=== PATIENT | female | born 1975 | race Hispanic/Latino ===

== ENCOUNTER 2021-10-16 19:10 | Emergency (ER) | payer OTHER, SELFPAY ==
[2021-10-16] VITALS (15 sets, daily range): BP systolic 101–131; BP diastolic 59–87; PULSE 78–90; RESP 16–22; TEMP 36.4–36.8; O2SAT 98–100
--- NOTE | ~2021-10-16 | XR_ITS ---
EXAMINATION: XR chest 2V EXAM DATE: 10/16/2021 19:51 INDICATION: Left-sided chest pain for 2 days. Left arm numbness. TECHNIQUE: Frontal and lateral projections of the chest obtained and reviewed. There is no prior dimas dy for comparison. FINDINGS: The lungs are clear. There are no pleural effusions. The cardiomediastinal silhouette is within normal limits. There is no pneumothorax suspected. There are cholecystectomy clips. There ar e no osseous abnormalities identified. IMPRESSION: Normal chest x-ray exam. Reviewed, dictated and finalized at location A. L CEILING BUILDER IMPRESSION: Normal chest x-ray exam.
--- NOTE | 2021-10-16 19:13 | ECG_ITS ---
Measurements Intervals [place] Rate: 86 P: 55 WA: 137 QRS: 11 QRSD: 97 T: 10 QT: 351 QTc: 422 Interpretive Statements SINUS RHYTHM BORDERLINE ST-T WAVE ABNORMALITY- ANT/INF LEADS BORDERLINE ECG Electronically Signed On 10-16-2021 20:01:54 CLIENT PROGRAM MANAGER by Master Morelos D.O.
[2021-10-16 19:33] LABS: Basophils Percent Auto 0.4 % (0.2-1.2); Eosinophils Absolute Auto 0.1 K/mm3 (0-0.3); Eosinophils Percent Auto 1.4 % (0-4.4); Hematocrit 41.3 % (37.0-47.0); Immature Granulocyte Absolute 0.01 K/mm3 (0.00-0.031); Immature Granulocyte Percent A 0.1 % (0-0.5); Lymphocytes Absolute Auto 2.67 K/mm3 (0.9-3.2); Lymphocytes Percent Auto 32.1 % (18.3-44.2); Mean Corpuscular HGB Conc 33.9 g/dl (32-36); Mean Corpuscular Volume 85.5 fl (80-100); Mean Platelet Volume 9.4 fl (7.4-10.4); Monocytes Absolute Auto 0.7 K/mm3 (0.1-0.6); Monocytes Percent Auto 8.9 % (2.6-8.5); Neutrophils Absolute Auto 4.7 K/mm3 (1.3-6.7); Neutrophils Percent Auto 57.1 % (45.5-73.1); Platelet Count Result 316 k/mm3 (150-375); Red Blood Count 4.83 M/mm3 (4.2-5.4); Red Cell Distribution Width 13.1 % (11.5-14.5); White Blood Count 8.3 K/mm3 (4.5-10.0)
[2021-10-16 19:42] LABS: Prothrombin Time 12.8 Seconds (11.1-14.7)
[2021-10-16 19:43] LABS: Alanine Aminotransferase 20 U/L (4-35); Albumin Level 4.4 g/dL (3.5-5.1); Alkaline Phosphatase 71 U/L (38-126); Anion Gap 7 mmol/L (8-16); Aspartate Amino Transferase 24 U/L (14-36); Bilirubin,Total 0.3 mg/dL (0.2-1.3); Blood Urea Nitrogen 13 mg/dL (7-17); Calcium 9.2 mg/dL (8.4-10.2); Carbon Dioxide 26 mmol/L (22-30); Chloride 102 mmol/L (98-107); Estimated Glomerular Filt Rate > 60; Glucose 100 mg/dL (65-110); Lipase 224 U/L (23-300); Partial Thromboplastin Time 27.9 SECONDS (22.3-36.8); Potassium 3.7 mmol/L (3.4-5.0); Sodium 135 mmol/L (137-145)
--- NOTE | 2021-10-16 19:46 | PC.NURSE ---
Pt off floor to radiology
[2021-10-16 19:54] LABS: Troponin I < 0.012 ng/mL (0.000-0.034)
--- NOTE | 2021-10-16 20:20 | PC.NURSE ---
Pt took aspirin SURFACE BOSS
--- NOTE | 2021-10-16 20:36 | ED.CHESTPAIN ---
HPI - Chest Pain General Chief Complaint: Chest Pain Stated Complaint: chest pain Time Seen by Provider: 10/16/21 20:13 Source: patient History of Present Illness HPI narrative: Patient presents with left-sided chest pain and neck pain. Patient reports she had symptoms yesterday they appear to get better they recurred again today she took some aspirin with some improvement however they do not completely resolve so she came to the ER for evaluation. Reports her pain is exacerbated with left upper extremity movement. The pain is sharp, constant, radiates from her neck to her chest. She denies any shortness of breath, nausea, vomiting, diarrhea, diaphoresis. Cough or congestion. She denies recent hospitalizations, surgeries prior history of blood clots. She reports she does travel a lot for work recent from [place] about a week and a half ago. Related Data Home Medications Medication Instructions Recorded Confirmed No Home Medications 10/16/21 10/16/21 Allergies Allergy/AdvReac Type Severity Reaction Status Date / Time Fish Containing Products Allergy Hives Verified 10/16/21 20:17 Review of Systems Review of Systems: CONSTITUTIONAL: Denies fever, chills, or sweats. EYES: Denies visual changes, redness, or discharge. ENT: Denies rhinorrhea, congestion, sore throat, or otalgia. CARDIOVASCULAR: Denies palpitations, or edema. RESPIRATORY: Denies cough or dyspnea. GASTROINTESTINAL: Denies abdominal pain, nausea, vomiting, or diarrhea. GENITOURINARY: Denies dysuria or hematuria. SKIN: Denies rash or itching. MUSCULOSKELETAL: Denies back pain, joint pain, or myalgia. NEUROLOGIC: Denies headache, numbness, dizziness, or weakness. PSYCHIATRIC: Denies anxiety or depression. All systems reviewed & are unremarkable except as noted in HPI and below PMFSH Past Medical History Medical History (Updated 10/17/21 @ 00:00 by Soy Osorio) Patient denies medical problems Social History Social History (Updated 10/16/21 @ 20:38 by Ceasar Del Castillo MD) Substance use: never Exam Narrative: GENERAL: Well-appearing, well-nourished, and in no acute distress. HEAD: Normocephalic, atraumatic. EYES: PERRLA and EOMI. ENT: Nares clear, no rhinorrhea or epistaxis. Mucous membranes moist. NECK: Supple. No masses. No JVD CHEST: Clear to auscultation. No respiratory distress. No wheezes rales or rhonchi HEART: Regular rate and rhythm. No murmur heard. Normal peripheral pulses. ABDOMEN: Soft, nontender, nondistended, normal active bowel sounds. EXTREMITIES: Normal range of motion. No edema. SKIN: Warm, dry, no rash. NEURO: No focal deficits. Alert and oriented x3. PSYCH: Normal mood and affect. Course Reevaluation(s) Reevaluation #1: Patient is resting comfortably results reviewed with patient. Patient is comfortable with outpatient plan. Date: 10/16/21 Time: 21:56 Vital Signs Vital signs: Vital Signs Temperature 36.4 C L 10/16/21 19:14 Pulse Rate 88 10/16/21 19:14 Respiratory Rate 18 10/16/21 19:14 Blood Pressure 131/68 10/16/21 19:14 Pulse Oximetry 100 10/16/21 19:14 Temperature 36.8 C 10/16/21 22:12 Pulse Rate 81 10/16/21 22:12 Respiratory Rate 19 10/16/21 22:12 Blood Pressure 104/60 10/16/21 22:12 Pulse Oximetry 100 10/16/21 22:12 MDM - Chest Pain MDM Narrative Medical decision making narrative: H&P as above, vss, pt looks clinically well, exam reassuring, labs clinically unremarkable with negative troponin with 24 hours worth of symptoms and negative dimer, img clinically unremarkable, additional labs/img considered, symptomatic relief available as needed, on reevaluation pt continues to looks clinically well. Symptoms remain of unclear etiology may represent chest wall pain or soft tissue injury due to the exacerbation with upper extremity movement, dns ACS, PE, dissection, pneumothorax. plan to tx/monitor as op w/ pcm f/u findings/plan discussed with pt, pt agree/comfortabl
[2021-10-16] MEDS: SODIUM CHLORIDE 0.9% IV 1,000 ML 999 ML IV CONT (21:08)
[2021-10-16 21:23] LABS: D Dimer 0.27 ug/mL (<0.48)
== END 2021-10-16 22:15 | disposition home or self-care (01) ==
PROVIDERS: Emergency Medicine; Emergency Provider Emergency Medicine
DX: R07.89 Other chest pain (principal); R94.31 Abnormal electrocardiogram [ECG] [EKG]
CPT/HCPCS: 36415; 71046; 80053; 83690; 84484; 85025; 85380; 85610; 85730; 93005; 96361; 96374; 99284; J0131; J7030

== ENCOUNTER 2022-01-05 09:42 | Emergency (ER) | payer OTHER, SELFPAY ==
--- NOTE | ~2022-01-05 | XR_ITS ---
EXAMINATION: XR hip LT 2V w AP pelvis EXAM DATE: 01/05/2022 10:59 INDICATION: Fall Left Hip And Left Knee Pain TECHNIQUE: Left hip frontal, 'frog leg' projections for interpretation. Frontal projection pelvis. There is no prior study for comparison. FINDINGS: Smooth left hip femoral head contour, no radiographic evidence of avascular necrosis. Ther e is mild symmetric bilateral hip primary osteoarthritis. There are no acute fractures or dislocation s identified. There is no subcutaneous gas. The soft tissue is unremarkable. There are no radiopa que foreign bodies. IMPRESSION: 1. XR hip LT 2V w AP pelvis exam without acute osseous findings. Reviewed, dictated and finalized at location B. TESTER
--- NOTE | ~2022-01-05 | XR_ITS ---
EXAMINATION: XR knee LT 3V EXAM DATE: 01/05/2022 10:59 INDICATION: Initial encounter following injury, with pain of the left knee. TECHNIQUE: Three projections of the left knee. There is no prior study for comparison. FINDINGS: No evidence osteochondral defect or joint body in the left knee joint. There are no acute fractures or dislocations identified. There is no subcutaneous gas. The soft tissue is unremarkabl e. There are no radiopaque foreign bodies. IMPRESSION: 1. XR knee LT 3V exam without acute osseous findings. Reviewed, dictated and finalized at location B. ERGARTEN CLASSROOM TEACHER
[2022-01-05 09:49] VITALS: BP 129/69; PULSE 89; RESP 18; TEMP 36.4; O2SAT 99
--- NOTE | 2022-01-05 10:53 | PC.NURSE ---
Leg elevated and ice pack provided for comfort.
--- NOTE | 2022-01-05 11:39 | ED.GENADULT ---
HPI - General Adult General Chief complaint: Extremity Injury, Lower Stated complaint: L hip/knee injury Time Seen by Provider: 01/05/22 10:18 Source: patient Mode of arrival: ambulatory Limitations: no limitations History of Present Illness HPI narrative: Patient is a 46-year-old female with chief complaint of pain to the left knee and hip after slipping on the ice at her job parking right and doing the splits onto her knees. Patient reports that she feels a popping sensation to the left knee. She reports pain to the medial lateral areas. She reports that she was able to get up and drive herself to the emergency department. Patient reports that she did have cartilage and soft tissue injury to the knee and surgery over 10 years ago. Patient denies any head impact or any other injuries from her fall. Related Data Allergies Allergy/AdvReac Type Severity Reaction Status Date / Time Fish Containing Products Allergy Hives Verified 01/05/22 10:17 Review of Systems Review of Systems: CONSTITUTIONAL: Denies fever, chills, or sweats. EYES: Denies visual changes, redness, or discharge. ENT: Denies rhinorrhea, congestion, sore throat, or otalgia. CARDIOVASCULAR: Denies chest pain, palpitations, or edema. RESPIRATORY: Denies cough or dyspnea. GASTROINTESTINAL: Denies abdominal pain, nausea, vomiting, or diarrhea. GENITOURINARY: Denies dysuria or hematuria. SKIN: Denies rash or itching. MUSCULOSKELETAL: Reports left knee and left hip pain denies back pain, joint pain, or myalgia. NEUROLOGIC: Denies headache, numbness, dizziness, or weakness. PSYCHIATRIC: Denies anxiety or depression. [facility] Past Medical History Medical History (Updated 01/05/22 @ 11:42 by Jaret Aparicio PA-C) Patient denies medical problems Social History Social History (Updated 10/16/21 @ 20:38 by Ceasar Del Castillo MD) Substance use: never Exam Narrative: GENERAL: Well-appearing, well-nourished, and in no acute distress. HEAD: Normocephalic, atraumatic. EYES: PERRLA and EOMI. CHEST: Clear to auscultation. No respiratory distress. No wheezes rales or rhonchi HEART: Regular rate and rhythm. EXTREMITIES: Pain to the medial and lateral area of the left knee. Pain with palpation to the inferior aspect of the knee. Pain to the lateral left hip. SKIN: Warm, dry, no rash. NEURO: No focal deficits. Alert and oriented x3. PSYCH: Normal mood and affect. Course Vital Signs Vital signs: Vital Signs Temperature 97.6 F 01/05/22 09:49 Pulse Rate 89 01/05/22 09:49 Respiratory Rate 18 01/05/22 09:49 Blood Pressure 129/69 01/05/22 09:49 Pulse Oximetry 99 01/05/22 09:49 Temperature 97.6 F 01/05/22 09:49 Pulse Rate 75 01/05/22 12:30 Respiratory Rate 14 01/05/22 12:30 Blood Pressure 135/77 01/05/22 12:30 Pulse Oximetry 100 01/05/22 12:30 Medical Decision Making MDM Narrative Medical decision making narrative: Concern for possible tendon/ligament injury. Patient placed in knee immobilizer and given crutches. Patient instructed to follow up with Occupational health or ortho as MRI may be needed. Patient has had gastric balloon so she can not have nsaids. Patient given RTER instructions. Differential Diagnosis Differential Diagnosis: Fracture, sprain, strain Vital Signs Vital Signs: Vital Signs Temperature 97.6 F 01/05/22 09:49 Pulse Rate 89 01/05/22 09:49 Respiratory Rate 18 01/05/22 09:49 Blood Pressure 129/69 01/05/22 09:49 Pulse Oximetry 99 01/05/22 09:49 Temperature 97.6 F 01/05/22 09:49 Pulse Rate 75 01/05/22 12:30 Respiratory Rate 14 01/05/22 12:30 Blood Pressure 135/77 01/05/22 12:30 Pulse Oximetry 100 01/05/22 12:30 Imaging Data Radiologist's impression: ITS Impressions Hip/Pelvis X-Ray 01/05/22 11:07 IMPRESSION: 1. XR hip LT 2V w AP pelvis exam without acute osseous findings. Knee X-Ray 01/05/22 11:08 IMPRESSION: 1. XR knee LT 3V exam without acute osseo
[2022-01-05 12:30] VITALS: BP 135/77; PULSE 75; RESP 14; O2SAT 100
--- NOTE | 2022-01-05 12:30 | PC.NURSE ---
Knee immobilizer applied to left knee. Patient provided crutches and education.
== END 2022-01-05 12:30 | disposition home or self-care (01) ==
PROVIDERS: Emergency Provider Emergency Medicine
DX: S83.92XA Sprain of unspecified site of left knee, initial encounter (principal); W00.0XXA Fall on same level due to ice and snow, initial encounter
CPT/HCPCS: 73502; 73562; 99284

== ENCOUNTER → 2022-01-20 08:58 | Outpatient (CLI) | payer OTHER, SELFPAY ==
--- NOTE | ~2022-01-20 | MR_ITS ---
EXAMINATION: MR knee LT wo con DATE: 01/20/2022 09:42 INDICATION: Medial collateral ligament tear presenting with medial left knee pain post fall 2 weeks p rior TECHNIQUE: Magnetic resonance imaging (MRI) of the left knee was performed without intravenous contra st. Sequences included coronal PD-weighted FSE, coronal PD-weighted FS FSE, sagittal T2-weighted FSE , sagittal PD-weighted FS FSE and axial PD weighted fat saturated FSE. COMPARISON: None. FINDINGS: Medial compartment: Medial meniscus is normal. Articular cartilage is normal. Lateral compartment: Lateral meniscus is normal. There is marrow edema surrounding a linear nondisplaced fracture line und erlying the lateral margin of the posterior weightbearing lateral femoral condyle. The articular cart ilage is normal. Patellofemoral compartment: Partial-thickness chondral fissuring without degenerative subchondral changes at the patellar apical ridge and medial side of the lateral facet. Trochlear cartilage is normal. Ligaments and tendons: Anterior and posterior cruciate ligaments are normal. Mild partial-thickness tear involving the anter ior aspect of the proximal medial collateral ligament with surrounding soft tissue edema. The extenso r mechanism is normal. The visualized medial and lateral hamstring tendons as well as the iliotibial band are normal. Fluid: Physiologic amount of fluid in the joint space. No loose osteochondral bodies identified. IMPRESSION: 1. Moderate grade sprain/partial thickness tear at the proximal medial collateral ligament. 2. Nondisplaced subarticular impaction fracture underlying the posterior weightbearing lateral femora l condyle. 3. Moderate grade patellar chondromalacia. Reviewed, dictated and finalized at location A. ANALYST REPORT WRITER IMPRESSION: 1. Moderate grade sprain/partial thickness tear at the proximal medial collater al ligament. 2. Nondisplaced subarticular impaction fracture underlying the posterior weight bearing lateral femoral condyle. 3. Moderate grade patellar chondromalacia.
== END ==
PROVIDERS: Visit Provider Orthopaedic Surgery
DX: S83.412A Sprain of medial collateral ligament of left knee, initial encounter (principal); S72.425A Nondisplaced fracture of lateral condyle of left femur, initial encounter for closed fracture; M22.42 Chondromalacia patellae, left knee
CPT/HCPCS: 73721

== ENCOUNTER → 2023-07-19 14:14 | Outpatient (CLI) | payer OTHER, SELFPAY ==
--- NOTE | ~2023-07-19 | MR_ITS ---
EXAMINATION: MR brain/brain stem wo/w con DATE: 07/19/2023 15:10 INDICATION: Hyperprolactinemia. TECHNIQUE: Magnetic resonance imaging (MRI) of the brain and brainstem was performed without and with 15 mL MultiHance intravenous contrast. COMPARISON: None. FINDINGS: The pituitary is normal in size with height of 5 mm. There is no intracranial hemorrhage, a cute infarction, or abnormal intracranial mass lesion. The ventricles are normal in size. The paranas al sinuses are clear. The mastoid air cells are normal. The orbits are normal. IMPRESSION: 1. Normal pituitary. Normal brain. Reviewed, dictated and finalized at location A.
== END ==
PROVIDERS: PCP Internal Medicine Endocrinology, Diabetes & Metabolism; Visit Provider Internal Medicine Endocrinology, Diabetes & Metabolism
DX: E22.1 Hyperprolactinemia (principal)
CPT/HCPCS: 70553; A9577

== ENCOUNTER 2023-12-12 13:56 | Emergency (ER) | payer OTHER, SELFPAY ==
--- NOTE | ~2023-12-12 | CT_ITS ---
EXAMINATION: CT abdomen pelvis w con DATE: 12/12/2023 17:31 INDICATION: Diarrhea. TECHNIQUE: Computed tomography (CT) of the abdomen and pelvis was performed with 100 mL Omnipaque 350 intravenous contrast. Automated exposure control and iterative reconstruction technique were employe d. The dose-length product was 335.50 mGy-cm. COMPARISON: None. FINDINGS: The visualized portions of the lung bases demonstrate mild atelectasis. No pleural effusion . The heart size is normal. No pericardial effusion. There are changes of gastric sleeve procedure. T here are changes of cholecystectomy. The liver, spleen, pancreas, adrenal glands, and kidneys are nor mal. There are multiple uterine fibroids measuring up to 2.9 cm. There is diverticulosis of the colon without evidence of diverticulitis. The appendix is normal. There are no pathologically enlarged lym ph nodes. There is no free intraperitoneal fluid. There is a 3.8 cm cyst in right ovary, likely a fol licular cyst. There is subcutaneous fat stranding in the body wall, which may be changes of abdominop lasty. There is mild lumbar spondylosis. IMPRESSION: 1. Uterine fibroids. Reviewed, dictated and finalized at location E. TEACHER IMPRESSION: 1. Uterine fibroids.
[2023-12-12 13:58] VITALS: BP 119/76; PULSE 91; RESP 16; TEMP 36.7; O2SAT 100
[2023-12-12 15:04] VITALS: BP 117/79; PULSE 66; RESP 15; O2SAT 100
--- NOTE | 2023-12-12 15:17 | ED.GENADULT ---
HPI - General Adult General Chief complaint: Nausea/Vomiting/Diarrhea <Monster Zarate PA-C - Last Filed: 12/12/23 15:22> Stated complaint: diarrhea <Monster Zarate PA-C - Last Filed: 12/12/23 15:22> Time Seen by Provider: 12/12/23 15:17 <Monster Zarate PA-C - Last Filed: 12/12/23 15:22> Focused HPI: This is a 48-year-old female who presents to the ED with chief complaint of diarrhea x4 days. Reports that every time she eats she started to have cramping pain and immediately as diarrhea. She reports bariatric surgery done in August of 2023 but has done well with this up until this week. Endorses nausea. denies fevers, chills, vomiting, urinary problem. GENERAL: Well-appearing, well-nourished, and in no acute distress. HEAD: Normocephalic, atraumatic. CHEST: Clear to auscultation. No respiratory distress. ABDOMINAL: Epigastric tenderness present. No rigidity HEART: Regular rate and rhythm. NEURO: Alert and oriented x3. Patient screened in triage and initial orders placed. Additional care and disposition to be based upon diagnostic testing and treatment. <Monster Zarate PA-C - Last Filed: 12/12/23 15:22> Focused HPI: This is a 48-year-old female who presents to the ED with chief complaint of diarrhea x4 days. Reports that every time she eats she started to have cramping pain and immediately as diarrhea. She reports bariatric surgery done in August of 2023 but has done well with this up until this week. Endorses nausea. Denies fevers, chills, vomiting, urinary problem. GENERAL: Well-appearing, well-nourished, and in no acute distress. HEAD: Normocephalic, atraumatic. CHEST: Clear to auscultation. No respiratory distress. ABDOMINAL: Epigastric tenderness present. No rigidity HEART: Regular rate and rhythm. NEURO: Alert and oriented x3. Patient screened in triage and initial orders placed. Additional care and disposition to be based upon diagnostic testing and treatment. <Rachelle Win MD - Last Filed: 12/12/23 18:35> Related Data Home medications: Home Medications Medication Instructions Recorded Confirmed fexofenadine 60 mg-pseudoephedrine 1 tablet PO Q12H PRN 07/28/22 ER 120 mg tablet,ext.release,12 hr (Kim-D 12 Hour) <Monster Zarate PA-C - Last Filed: 12/12/23 15:22> Allergies/adverse reactions: Allergies Allergy/AdvReac Type Severity Reaction Status Date / Time acetaminophen [From [place]] Allergy Severe Hallucinati Verified 12/12/23 14:59 ng hydrocodone [From [place]] Allergy Severe Hallucinati Verified 12/12/23 14:59 ng Fish Containing Products Allergy Hives Verified 12/12/23 14:59 <Monster Zarate PA-C - Last Filed: 12/12/23 15:22> Review of Systems Review of Systems: All systems are reviewed and are negative unless stated otherwise in the HPI. <Rachelle Win MD - Last Filed: 12/12/23 18:35> PMFSH Past Medical History Medical History: Medical History Acute medial meniscus tear of left knee Obesity Patient denies medical problems Tear of MCL (medial collateral ligament) of knee <Monster Zarate PA-C - Last Filed: 12/12/23 15:22> Surgical History Surgical History: Surgical History H/O left knee surgery History of cholecystectomy S/P rhinoplasty Status post colposcopy <Monster Zarate PA-C - Last Filed: 12/12/23 15:22> Family History Family History: Family History Other Cancer Depression Hypertension <Monster Zarate PA-C - Last Filed: 12/12/23 15:22> Social History Social History: Social History Social History: Single Smoking status: Never smoker Second hand tobacco smoke exposure: No Alcohol intake: never Substance use: never Substance use type: do
[2023-12-12 15:20] LABS: Basophils Percent Auto 0.4 % (0.2-1.2); Eosinophils Absolute Auto 0.1 K/mm3 (0-0.3); Eosinophils Percent Auto 0.8 % (0-4.4); Hematocrit 45.1 % (37.0-47.0); Hemoglobin 14.8 g/dL (12.0-15.0); Immature Granulocyte Absolute 0.02 K/mm3 (0.00-0.031); Immature Granulocyte Percent A 0.3 % (0-0.5); Lymphocytes Absolute Auto 1.93 K/mm3 (0.9-3.2); Lymphocytes Percent Auto 24.7 % (18.3-44.2); Mean Corpuscular HGB Conc 32.8 g/dl (32-36); Mean Corpuscular Hemoglobin 28.3 pg (26-34); Mean Corpuscular Volume 86.2 fl (80-100); Mean Platelet Volume 10.6 fl (7.4-10.4); Monocytes Absolute Auto 0.7 K/mm3 (0.1-0.6); Monocytes Percent Auto 8.3 % (2.6-8.5); Neutrophils Absolute Auto 5.1 K/mm3 (1.3-6.7); Neutrophils Percent Auto 65.5 % (45.5-73.1); Platelet Count Result 335 k/mm3 (150-375); Red Blood Count 5.23 M/mm3 (4.2-5.4); Red Cell Distribution Width 13.1 % (11.5-14.5); White Blood Count 7.8 K/mm3 (4.5-10.0)
[2023-12-12 15:22] LABS: Appearance Urine Clear (Clear); Bilirubin Urine Negative (Negative); Blood Urine Negative (Negative); Color Urine Yellow (Yellow); Glucose Urine UA Negative (Negative); Ketones Urine Negative (Negative); Leukocyte Esterase Ur Negative LEU/UL (Negative); Nitrate Urine Negative (Negative); Protein Urine Negative (Negative); Specific Grav Ur 1.025 (1.001-1.035)
[2023-12-12 15:24] LABS: Add Urine Microscopic? NO
[2023-12-12 15:30] LABS: Alanine Aminotransferase 20 U/L (6-35); Albumin Level 4.3 g/dL (3.5-5.1); Alkaline Phosphatase 70 U/L (38-126); Anion Gap 8 mmol/L (8-16); Aspartate Amino Transferase 24 U/L (14-36); Bilirubin,Total 0.8 mg/dL (0.2-1.3); Blood Urea Nitrogen 16 mg/dL (7-17); Calcium 9.3 mg/dL (8.4-10.2); Carbon Dioxide 25 mmol/L (22-30); Chloride 104 mmol/L (98-107); Estimated CRCL calculation 77 ml/min; Estimated Glomerular Filt Rate > 60; Glucose 97 mg/dL (65-110); Lipase 346 U/L (23-300); Potassium 4.2 mmol/L (3.4-5.0); Sodium 137 mmol/L (137-145)
[2023-12-12] MEDS: SODIUM CHLORIDE 0.9% IV 1,000 ML 999 ML IV CONT (17:42)
[2023-12-12 18:50] VITALS: BP 116/70; PULSE 64; RESP 16; O2SAT 100
== END 2023-12-12 19:00 | disposition home or self-care (01) ==
PROVIDERS: Emergency Medicine; Emergency Provider Emergency Medicine; PCP Internal Medicine Endocrinology, Diabetes & Metabolism
DX: K52.9 Noninfective gastroenteritis and colitis, unspecified (principal); R74.8 Abnormal levels of other serum enzymes; E66.9 Obesity, unspecified; Z68.23 Body mass index [BMI] 23.0-23.9, adult; Z90.49 Acquired absence of other specified parts of digestive tract
CPT/HCPCS: 36415; 74177; 80053; 81003; 81025; 83690; 85025; 96360; 99284; J7030; Q9967